=== PATIENT | male | born 1995 | race Caucasian/White ===

== ENCOUNTER 2018-04-20 20:21 | Emergency (ER) | payer OTHER ==
[~2018-04-20] VITALS: Ht 182.9 cm; Wt 94.2 kg
[2018-04-20 20:24] VITALS: BP 123/74
[2018-04-20] MEDS ORDERED: ONDANSETRON ODT 4 MG ONE (21:11)
[2018-04-20] MEDS ORDERED: DIPHENHYDRAMINE 25 MG CAPSULE ONE (21:11)
[2018-04-20] MEDS ORDERED: KETOROLAC 30 MG/1 ML ONE (21:11)
[2018-04-20] MEDS ORDERED: KETOROLAC 30 MG/1 ML IM ONE (21:30)
[2018-04-20] MEDS ORDERED: DIPHENHYDRAMINE 25 MG CAPSULE PO ONE (21:30)
[2018-04-20] MEDS ORDERED: ONDANSETRON ODT 4 MG PO ONE (21:30)
== END 2018-04-20 22:19 | disposition home or self-care (01) ==
LOC: ED 21:50
DX: R51 Headache (principal)
CPT/HCPCS: 96372; 99283; J1885; Q0162; Q0163